=== PATIENT | male | born 1970 | race Caucasian/White ===

== ENCOUNTER 2016-05-13 08:13 | Emergency (ER) | payer OTHER ==
--- NOTE | ~2016-05-13 | CR151 ---
[facility] A Service of [facility] & [facility] RADIOLOGY TEXT RESULTS PATIENT: CHARY FREDERICK LOCATION: SED : 74 UNIT #: [id number] AGE: [address]: Bret Ha MD SEX: M ORDER DR: [id number] [place] [id number] E MR#: [id number] Acc #: [id number] NAME: CHARY FREDERICK : 1970 SEX: M STUDY DATE/TIME: 05/13/2016 7:46 UNIT: SED ROOM: STUDY DESCRIPTION: CR Hip Min 2 Views Rt Attending Physician: Bret Ha M.D. Ordering Physician: Bret Ha M.D. Primary Care Physician: Primary Care Physician No MEDICAL IMAGING REPORT This report is preliminary unless electronic signature is present. EXAM Right hip, 05/13 INDICATION Hip pain that started at 3 o'clock this morning. No known trauma. FINDINGS AP pelvis was obtained in addition to a frogleg right hip. There is some mild joint space narrowing in both hips suggesting some osteoarthritis. No fractures are identified. Both femoral heads are normal without evidence of osteonecrosis. IMPRESSION Bilateral joint space narrowing in the hips suggesting osteoarthritis. There are no acute findings. Dictated by... Chary Love Jr., M.D. THIS IS AN ELECTRONICALLY VERIFIED REPORT Chary Love Jr., M.D. at 05/13/2016 3:50 PM ASIA/viviana TD: 05/13/2016 10:21 JOB #: [id number] MEDICAL IMAGING REPORT
--- NOTE | ~2016-05-13 | CT105 ---
[facility] A Service [facility][1] RADIOLOGY TEXT RESULTS PATIENT: CHARY FREDERICK LOCATION: SED : 74 UNIT #: [id number] AGE: [address]: Bret Ha MD SEX: M ORDER DR: [id number] [place] [id number] E MR#: [id number] Acc #: [id number] NAME: CHARY FREDERICK : 1970 SEX: M STUDY DATE/TIME: 05/13/2016 9:48 UNIT: SED ROOM: STUDY DESCRIPTION: CT Pelvis W Cont Attending Physician: Bret Ha M.D. Ordering Physician: Bret Ha M.D. Primary Care Physician: Primary Care Physician No MEDICAL IMAGING REPORT This report is preliminary unless electronic signature is present. EXAM CT pelvis with contrast HISTORY Right hip pain starting at 3 a.m. TECHNIQUE Axial 5.0 mm images were obtained through the pelvis with contrast. This CT exam was performed with one or more of the following radiation dose reduction techniques: automatic exposure control, adjustment of mA and/or kV according to patient size, and iterative reconstruction. FINDINGS The iliac vessels are normal. The appendix is normal. The bladder and prostate gland are normal. The bones appear normal including the right hip. There is no hernia visible. IMPRESSION CT scan of the pelvis with contrast appears normal. The bones, including the right hip, appear normal. There is no fracture. The appendix is normal. Dictated by... Alber Whaley M.D. THIS IS AN ELECTRONICALLY VERIFIED REPORT Alber Whaley M.D. at 05/13/2016 12:18 PM DARWIN/viviana TD: 05/13/2016 11:10 [facility] A Service [facility][1] RADIOLOGY TEXT RESULTS PATIENT: CHARY FREDERICK LOCATION: SED : 74 UNIT #: [id number] AGE: [address]: Bret Ha MD SEX: M ORDER DR: ANEESH #: [id number] MEDICAL IMAGING REPORT
[2016-05-13 07:57] LABS: BASOPHIL# 0.1 X10e3 (0-0.3); BASOPHIL% 0.3 % (0-2.5); EOSINOPHIL% 0.2 % (0.0-7.0); HEMATOCRIT 42.9 % (38.0-50.0); HEMOGLOBIN 14.5 gm/dL (13.0-16.0); LYMPHOCYTE# 1.3 X10e3 (1.0-3.5); LYMPHOCYTE% 7.7 % (17.0-45.0); MEAN CELL VOLUME 79.9 FL (83-96); MEAN CORPUSCULAR HEMOGLOBIN 26.9 PG (28-34); MEAN CORPUSCULAR HGB CONC 33.7 g/dL (30-36); MEAN PLATELET VOLUME 7.4 FL (6.5-11.5); MONOCYTE% 6.3 % (3.0-12.0); NEUTROPHIL# 14.1 X10e3 (1.5-7.1); NEUTROPHIL% 85.5 % (40-75); PLATELET COUNT 222 X10e3 (140-420); RED BLOOD COUNT 5.38 X10e (3.90-5.60); RED CELL DISTRIBUTION WIDTH 13.9 % (11.0-15.5); WHITE BLOOD COUNT 16.5 X10e3 (4.0-10.5)
[2016-05-13 07:59] LABS: DIFF IND NO
[2016-05-13 08:13] LABS: BLOOD UREA NITROGEN 17 mg/dL (9-23); BUN/CREATININE RATIO 14.16; CALCIUM SERUM 9.5 mg/dL (8.4-10.2); CARBON DIOXIDE 23 mmol/L (22-31); CHLORIDE 101 mmol/L (100-111); CREATININE SERUM 1.2 mg/dL (0.6-1.4); GLOM FILT RATE Estimated ABOVE60 mL/min (>60); GLUCOSE FASTING 203 mg/dL (70-110); SODIUM 136 mmol/L (135-145)
[~2016-05-13 08:13] MED LIST: AMITRYPTYLINE PO; GLUCOPHAGE500 M1 PO; NEURONTIN PO; ZYLOPRIM100 MG PO
[2016-05-13 09:44] LABS: URINE SOURCE CLEAN CATCH
[2016-05-13 09:46] LABS: MICRO INDICATED? NO; URINE APPEARANCE CLEAR; URINE BILIRUBIN NEG (NEG); URINE BLOOD NEG (NEG); URINE COLOR YELLOW; URINE GLUCOSE NEG (NORM); URINE KETONE NEG (NEG); URINE LEUKOCYTE ESTERASE NEG (NEG); URINE NITRATE NEG (NEG); URINE PH 6.5 (5-8); URINE PROTEIN NEG (NEG); URINE SPECIFIC GRAVITY 1.015 (1.003-1.035); URINE UROBILINOGEN 0.2 MG/DL (NORM)
[2016-05-13] MEDS ORDERED: PREDNISONE PO (10:32)
[2016-05-13] MEDS ORDERED: FLEXERIL10 MG PO (10:33)
[2016-05-13] MEDS ORDERED: VOLTAREN75 MG PO (10:33)
== END 2016-05-13 11:41 | disposition home or self-care (01) ==
LOC: SED 08:13
PROVIDERS: Emergency Medicine
DX: S76.011A Strain of muscle, fascia and tendon of right hip, initial encounter (principal); M70.71 Other bursitis of hip, right hip; E11.65 Type 2 diabetes mellitus with hyperglycemia; Z79.899 Other long term (current) drug therapy; X58.XXXA Exposure to other specified factors, initial encounter; Y92.488 Other paved roadways as the place of occurrence of the external cause
CPT/HCPCS: 36415; 72193; 73502; 80048; 81003; 85025; 96374; 96375; 99284; J1170; J1885; J2405; J3360; Q9967